=== PATIENT | female | born 1940 | race Caucasian/White ===

== ENCOUNTER 2023-11-19 17:10 | Emergency (ER) | payer MEDICARE | END 2023-11-19 18:47 | disposition home or self-care (01) | LOC: BURERS 17:10 | DX: S09.90XA Unspecified injury of head, initial encounter (principal); S61.412A Laceration without foreign body of left hand, initial encounter; I10 Essential (primary) hypertension; W01.111A Fall on same level from slipping, tripping and stumbling with subsequent striking against power tool or machine, initial encounter | CPT/HCPCS: 70450; 72125 ==

== ENCOUNTER 2024-01-06 17:31 | Emergency (ER) | payer MEDICARE | END 2024-01-06 17:55 | disposition home or self-care (01) | LOC: BURERS 17:31 | DX: S70.11XA Contusion of right thigh, initial encounter (principal); S51.811A Laceration without foreign body of right forearm, initial encounter; I10 Essential (primary) hypertension; W18.09XA Striking against other object with subsequent fall, initial encounter | CPT/HCPCS: 99283 ==